=== PATIENT | male | born 1980 | race Hispanic/Latino ===

== ENCOUNTER 2018-05-11 10:05 | Inpatient (IN) | payer OTHER ==
[~2018-05-11] VITALS: Ht 167.6 cm; Wt 67.2 kg
[2018-05-11] MEDS ORDERED: SODIUM CHLORIDE 0.9% 1000ML 1,000 ML IV SCH (11:00)
[2018-05-11 11:06] LABS: BASOPHILS # (AUTO) 0.1 (0.0-0.1); BASOPHILS % 0.5 % (0.0-1.0); EOSINOPHILS % 0.3 % (0.0-6.0); HEMATOCRIT 46.4 % (38.2-49.6); HEMOGLOBIN 15.5 g/dL (14.0-18.0); LYMPHOCYTES # (AUTO) 2.4 (1.0-3.2); MEAN CORPUSCULAR HEMOGLOBIN 27.7 pg (28-32); MEAN CORPUSCULAR HGB CONC 33.4 g/dL (31-35); NEUTROPHILS # (AUTO) 8.5 (2.1-6.9); NEUTROPHILS % 70.6 % (38.7-80.0); PLATELET COUNT 257 x10e3/uL (140-360); RED BLOOD COUNT 5.59 x10e6/uL (4.3-5.7); RED CELL DISTRIBUTION WIDTH 13.2 % (11.7-14.4)
[2018-05-11 11:15] LABS: INR 1.05; PROTHROMBIN TIME 12.9 seconds (11.9-14.5)
[2018-05-11 11:16] LABS: PARTIAL THROMBOPLASTIN TIME 33.2 seconds (23.8-35.5)
[2018-05-11 11:22] LABS: BILIRUBIN,URINE NEGATIVE (NEGATIVE); CLARITY,URINE CLEAR (CLEAR); COLOR,URINE YELLOW (YELLOW); KETONES,URINE NEGATIVE (NEGATIVE); LEUKOCYTE ESTERASE ,URINE NEGATIVE (NEGATIVE); NITRITE,URINE NEGATIVE (NEGATIVE); PROTEIN,URINE DIPSTICK NEGATIVE (NEGATIVE); URINE UROBILINOGEN 0.2 mg/dL (0.2 - 1)
[2018-05-11 11:26] LABS: ALANINE AMINOTRANSFERASE 52 IU/L (0-55); ALBUMIN/GLOBULIN RATIO 1.1 (0.8-2.0); ALKALINE PHOSPHATASE 110 IU/L (40-150); AMYLASE 78 U/L (25-125); ANION GAP 16.5 mmol/L (8-16); BLOOD UREA NITROGEN 11 mg/dL (7-26); BUN/CREATININE RATIO 12 (6-25); CALCIUM 9.3 mg/dL (8.4-10.2); CARBON DIOXIDE 22 mmol/L (22-29); CHLORIDE 104 mmol/L (98-107); CREATINE KINASE 115 IU/L (30-200); CREATININE, SERUM 0.92 mg/dL (0.72-1.25); EST GLOMERULAR FILTRATION RATE > 60 ML/MIN (60-); GLUCOSE 106 mg/dL (74-118); LIPASE 31 U/L (8-78); POTASSIUM 3.5 mmol/L (3.5-5.1); SODIUM 139 mmol/L (136-145)
[2018-05-11 11:39] LABS: EPITHELIAL CELLS,URINE RARE /LPF; RBC,URINE 0-5 /HPF (0-5)
[2018-05-11] MEDS ORDERED: DONNATAL/LIDOCAINE/MAALOX 30 ML SUSP PO SCH (12:30)
--- NOTE | 2018-05-11 12:44 | Diagnostic Imaging Report ---
Examination: Single AP view of the chest. COMPARISON: None. INDICATION: Diarrhea for 2 months, stomach pain, epigastric pain IMPRESSION: 1. Lines and Tubes: None 2. Lungs are grossly clear. No consolidation or effusion. 3. Cardiomediastinal silhouette is normal. Pulmonary vasculature is normal. 4. No acute bony abnormalities. Signed by: Dr. Akhil Ames M.D. on 05/11/2018 12:41 PM
[2018-05-11] MEDS ORDERED: MORPHINE SULFATE INJ 4 MG/ML INJ IV STA (15:11)
[2018-05-11] MEDS ORDERED: KETOROLAC TROMETHAMINE 30 MG/ML VIAL IV STA (15:36)
[2018-05-11] MEDS ORDERED: LOSARTAN POTASS25 MG PO (17:13)
--- NOTE | 2018-05-11 17:19 | Diagnostic Imaging Report ---
EXAM: CT Abdomen and Pelvis WITH contrast INDICATION: \S\diffuse abdominal pain with diarrhea \[id number] \S\1558 \S\Y COMPARISON: None. TECHNIQUE: Abdomen and pelvis were scanned utilizing a multidetector helical scanner from the lung base to the pubic symphysis after administration of IV contrast. Coronal and sagittal reformations were obtained. Routine protocol was performed. Scan was performed when during portal venous phase. IV CONTRAST: 100 mL of Isovue 370 ORAL CONTRAST: Water COMPLICATIONS: None RADIATION DOSE: Total DLP: 267.1 mGy*cm Estimated effective dose: (DLP x 0.015 x size factor) mSv CTDIvol has been reviewed. It is below the limits set by the Radiation Protocol Committee (RPC). FINDINGS: LINES and TUBES: None. LOWER THORAX: Unremarkable HEPATOBILIARY: No focal hepatic lesions. No biliary ductal dilation. GALLBLADDER: No radio-opaque stones or sludge. No wall thickening. SPLEEN: No splenomegaly. PANCREAS: No focal masses or ductal dilatation. ADRENALS: No adrenal nodules KIDNEYS/URETERS: Kidneys enhance symmetrically. No hydronephrosis. Right renal 1.3 cm hypodensity in the midpole measures greater than fluid density (29 HU). No stones. GI TRACT: Circumferential wall thickening and pericolonic stranding centered around a focal outpouching of the transverse colonic wall (series 2 image 29). A tiny punctate hyperattenuating 0.5 cm structure is noted along the anterior aspect of this outpouching measuring 311 HU. PELVIC ORGANS/BLADDER: Unremarkable. LYMPH NODES: No lymphadenopathy. VESSELS: Unremarkable. PERITONEUM / RETROPERITONEUM: No free air or fluid. BONES: Unremarkable. SOFT TISSUES: Unremarkable. IMPRESSION: Focal outpouching of the anterior transverse colonic wall contains a punctate hyperattenuating structure with surrounding inflammatory changes. Findings raise the question of a foreign body with chronic contained perforation. No evidence of makayla perforation with free air. Findings discussed with Dr. Sánchez on 05/11/2018 at 16:50 hrs. Signed by: DR. Terrance Mckeon MD on 05/11/2018 5:15 PM
[2018-05-11] MEDS ORDERED: MORPHINE SULFATE 2 MG/ML SYR IV PRN (18:00)
[2018-05-11] MEDS ORDERED: PIPER-TAZ 3.375 GM 50 ML IV SCH (18:30)
[2018-05-11] MEDS ORDERED: DIPHENHYDRAMINE HCL INJ 50 MG/ML VIAL IV ONE (19:30)
[2018-05-11] MEDS: METRONIDAZOLE 500MG/NS 100ML 100 ML IV SCH (19:33)
[2018-05-11] MEDS: SODIUM CHLORIDE 0.9% 1000ML 1,000 ML IV SCH (19:33)
[2018-05-11 20:55] VITALS: BP 118/82
[2018-05-11 21:35] VITALS: BP 118/82
[2018-05-11] MEDS ORDERED: METRONIDAZOLE 500MG/NS 100ML 100 ML IV SCH (22:00)
[2018-05-12] VITALS (8 sets, daily range): BP systolic 102–122; BP diastolic 55–76
[2018-05-12] MEDS: MORPHINE SULFATE INJ 4 MG/ML INJ IV PRN (02:13)
[2018-05-12] MEDS: ONDANSETRON HCL INJ 2 MG/ML VIAL IV PRN (02:13)
[2018-05-12] MEDS ORDERED: IOPAMIDOL 370 MG/ML 200 ML INFUS..BTL INJ ONE (03:14)
[2018-05-12] MEDS ORDERED: SODIUM CHLORIDE 0.9% 50ML 50 ML ONE (03:14)
--- NOTE | 2018-05-12 04:25 | History and Physical ---
DATE OF ENCOUNTER: May 11, 2018 PRIMARY PHYSICIAN: [facility]. HOSPITAL PHYSICIAN: Dr. Miguel Tyler HISTORY: Mr. Taylor is a pleasant 38-year-old gentleman with abdominal pain. Patient has been having diarrhea for 3 months. A 10-lb weight loss over 2 months. He claims his eating habits are unchanged and he is not taking in any chemical diets. Patient began to feel some increasing midepigastric abdominal pain. First time he ever had this. He had appendectomy at age 8, but other than that has been healthy. He came to emergency room. White count 4. Creatinine 0.9. LFTs mostly unremarkable with albumin 4.0. C. diff assay was negative. Abdominal CT showed anterior transverse colonic outpouching, and inflammatory appearance. No free air. Consistent with perforated diverticulitis with containment. No free intraperitoneal air noted. He was admitted. PAST MEDICAL HISTORY: Hypertension, PTSD, back pain, and more recently this subacute chronic diarrhea. MEDICATIONS: Medication list reviewed per electronic record. ALLERGIES: PIPERACILLIN AND TAZOBACTAM. SOCIAL HISTORY: No smoking, no drinking, no drugs. He was in the [employer] for 15 years, is 100% disconnected. Patient recently operates multiple businesses now. FAMILY HISTORY: Noncontributory. REVIEW OF SYSTEMS GENERAL: No weight changes that were done intentionally. HEENT: No ulcers in mouth. ENDOCRINE: No known thyroid disease. CARDIAC: No heart attacks. LUNGS: No asthma. GI: No blood in stool. : No blood in urine. NEUROLOGIC: No seizures. DERMATOLOGIC: No rashes. PSYCHIATRIC: No depression. LABS: 3.5 potassium, 0.9 creatinine, 11 BUN, 12 white count, 16 hematocrit, 257,000 platelets. IMPRESSIONS AND PLAN 1. Acute diverticulitis. 2. Chronic contained perforation, transverse colonic. 3. Diarrhea for 2 months. 4. Weight loss, secondary. 5. Posttraumatic stress disorder. 6. Hypertension. 7. Back pain. Continue antibiotics. Patient will be reassessed for discharge potential tomorrow. Check HIV testing, check thyroid testing. Continue antibiotics for this potentially severe infection. Job#: [id number] CQ
[2018-05-12] MEDS: SODIUM CHLORIDE 0.9% 1000ML 1,000 ML IV SCH ×3 (04:54→18:00)
[2018-05-12] MEDS: CIPROFLOXACIN 400 MG/D5W 200ML 200 ML IV SCH ×2 (05:13→14:10)
[2018-05-12 05:30] LABS: BASOPHILS % 0.4 % (0.0-1.0); EOSINOPHILS # (AUTO) 0.1 (0.0-0.4); EOSINOPHILS % 0.6 % (0.0-6.0); HEMATOCRIT 40.2 % (38.2-49.6); HEMOGLOBIN 13.3 g/dL (14.0-18.0); LYMPHOCYTES # (AUTO) 2.3 (1.0-3.2); LYMPHOCYTES % 21.5 % (18.0-39.1); MEAN CORPUSCULAR HEMOGLOBIN 27.8 pg (28-32); MEAN CORPUSCULAR HGB CONC 33.1 g/dL (31-35); MEAN CORPUSCULAR VOLUME 84.1 fL (81-99); MONOCYTES # (AUTO) 0.8 (0.2-0.8); MONOCYTES % 7.8 % (4.4-11.3); NEUTROPHILS # (AUTO) 7.5 (2.1-6.9); NEUTROPHILS % 69.3 % (38.7-80.0); PLATELET COUNT 213 x10e3/uL (140-360); RED BLOOD COUNT 4.78 x10e6/uL (4.3-5.7); RED CELL DISTRIBUTION WIDTH 13.2 % (11.7-14.4)
[2018-05-12 05:50] LABS: ALANINE AMINOTRANSFERASE 40 IU/L (0-55); ALBUMIN 3.2 g/dL (3.5-5.0); ALBUMIN/GLOBULIN RATIO 1.1 (0.8-2.0); ALKALINE PHOSPHATASE 86 IU/L (40-150); ANION GAP 15.6 mmol/L (8-16); BLOOD UREA NITROGEN 9 mg/dL (7-26); BUN/CREATININE RATIO 11 (6-25); CALCIUM 8.5 mg/dL (8.4-10.2); CARBON DIOXIDE 21 mmol/L (22-29); CHLORIDE 108 mmol/L (98-107); EST GLOMERULAR FILTRATION RATE > 60 ML/MIN (60-); GLUCOSE 82 mg/dL (74-118); POTASSIUM 3.6 mmol/L (3.5-5.1); SODIUM 141 mmol/L (136-145)
[2018-05-12 06:19] LABS: HIV 1&2 AB SCREEN NON-REACTIVE (NONREACTIVE)
[2018-05-12] MEDS: METRONIDAZOLE 500MG/NS 100ML 100 ML IV SCH ×2 (06:19→21:21)
[2018-05-12] MEDS: MULTIVITAMINS/MINERALS TAB PO SCH (09:00)
[2018-05-12] MEDS: FAMOTIDINE 20 MG/2 ML VIAL IV SCH (17:45)
--- NOTE | 2018-05-12 21:11 | Consultation ---
DATE OF CONSULTATION: May 12, 2018 CHIEF COMPLAINT: Abdominal pain. HISTORY OF PRESENT ILLNESS: The patient is a 38-year-old male with 2-month history of progressive diarrhea and anorexia. The patient stated in the last several days the pain has worsened with severity reaching at peak just prior to arrival to the emergency room yesterday. The patient denies fever or chills, but admits to nausea with no vomiting. PAST MEDICAL HISTORY: Significant for hypertension, PTSD, chronic back pain, and chronic diarrhea. SURGICAL HISTORY: Positive for appendectomy. SOCIAL HABITS: No history of smoking or alcohol abuse. ALLERGIES: HE IS ALLERGIC TO PENICILLIN. REVIEW OF SYSTEMS: Unremarkable for any chest pain. No shortness of breath. PHYSICAL EXAMINATION: VITAL SIGNS: Stable. He is afebrile. GENERAL: The patient is awake, alert, in mild to moderate discomfort. HEENT: Sclerae are nonicteric. NECK: Supple. LUNGS: Clear. HEART: Regular rate and rhythm. ABDOMEN: Soft with some guarding tenderness in the epigastrium and right upper quadrant without rebound tenderness. EXTREMITIES: Without cyanosis or edema. LABORATORY DATA: White cell count of 11, hemoglobin of 13. Creatinine of 0.8. Lactic acid 7. CT of the abdomen showed evidence of circumferential wall thickening and colonic stranding in the transverse colonic wall. ASSESSMENT: Perforated transverse colonic diverticulitis. PLAN: IV antibiotics. Will follow patient with you. Thank you. Job#: [id number]
[2018-05-13] VITALS (8 sets, daily range): BP systolic 106–141; BP diastolic 65–87
[2018-05-13] MEDS: SODIUM CHLORIDE 0.9% 1000ML 1,000 ML IV SCH ×4 (00:09→19:30)
--- NOTE | 2018-05-13 02:18 | Consultation ---
DATE OF CONSULTATION: GI CONSULTATION REFERRING PHYSICIAN: Dr. Tyler REASON FOR CONSULTATION: Colitis, diverticulitis. HISTORY OF PRESENT ILLNESS: Mr. Taylor is a pleasant 38-year-old gentleman with known history of hypertension, PTSD, back problems, who comes into the hospital with a 3-month history of diarrhea. However, over the last 3 days, he developed increasing abdominal discomfort in the epigastric region, and hence he came in. He reports a 10-pound weight loss. In the ER, he had a CAT scan of the abdomen which revealed evidence of diverticulitis of the transverse colon with possible contained perforation. No free air. No masses. His stool for C. diff was negative. His white count was normal. Creatinine was normal. Hemoglobin was normal. He denies a history of any previous antibiotic use. His pain has improved since he has been n.p.o. PAST MEDICAL HISTORY: As above. Hypertension, PTSD, back problems, diarrhea for 3 months. MEDICATIONS: Per NOV. ALLERGIES: PIPERACILLIN-TAZOBACTAM. SOCIAL HISTORY: Does not smoke, does not drink. Was in the [employer] for 15 years. PHYSICAL EXAMINATION: VITAL SIGNS: Stable, afebrile. GENERAL: Patient is alert and oriented x3, in no acute distress. HEENT: Nonicteric. No nodes. No thyromegaly. LUNGS: Clear to auscultation. CVS: S1 and S2 normal. No murmur. ABDOMEN: Soft. Mild tenderness in the epigastric region. EXTREMITIES: No edema. LABS AND X-RAYS: White count 10.7 today, hemoglobin 13.3, platelets normal. Coags normal. Chemistries, BMP, and liver function tests normal. Urine normal. Serology, stool for C. diff negative. IMPRESSION: 1. Diverticulitis of the transverse colon, presenting with diarrhea for 2 months and increasing abdominal pain with contained perforation. There is no evidence of any Clostridium difficile. However, will recommend stool for culture and sensitivity. Agree with intravenous antibiotics. 2. NPO for another 24 hours and clear liquids in a.m. Patient will need elective colonoscopy in 4 to 6 weeks to rule out underlying neoplasm. Further recommendations pending hospital course. The above plan of care was discussed with the patient and he is agreeable. Job#: [id number]
[2018-05-13] MEDS: CIPROFLOXACIN 400 MG/D5W 200ML 200 ML IV SCH (03:42)
[2018-05-13] MEDS: METRONIDAZOLE 500MG/NS 100ML 100 ML IV SCH ×3 (05:16→21:43)
[2018-05-13] MEDS: FAMOTIDINE 20 MG/2 ML VIAL IV SCH (09:31)
[2018-05-13] MEDS: MULTIVITAMINS/MINERALS TAB PO SCH (09:31)
[2018-05-13] MEDS: LEVOFLOXACIN 750MG/D5W 150ML 150 ML IV SCH (14:04)
[2018-05-13] MEDS ORDERED: LOPERAMIDE HCL 2 MG CAP PO PRN (17:45)
[2018-05-13] MEDS ORDERED: LOPERAMIDE HCL 2 MG CAP PO NR (17:45)
[2018-05-13] MEDS ORDERED: ZOLPIDEM TARTRATE 5 MG TAB PO PRN (21:45)
[2018-05-14] VITALS (8 sets, daily range): BP systolic 112–150; BP diastolic 74–93
[2018-05-14] MEDS: METRONIDAZOLE 500MG/NS 100ML 100 ML IV SCH ×3 (05:24→21:28)
[2018-05-14] MEDS: MULTIVITAMINS/MINERALS TAB PO SCH (08:27)
[2018-05-14] MEDS: LEVOFLOXACIN 750MG/D5W 150ML 150 ML IV SCH (13:15)
[2018-05-14] MEDS: ONDANSETRON HCL INJ 2 MG/ML VIAL IV PRN (18:25)
[2018-05-14] MEDS: MORPHINE SULFATE INJ 4 MG/ML INJ IV PRN (18:25)
[2018-05-14] MEDS: ACETAMINOPHEN 325 MG TAB PO PRN (23:45)
[2018-05-15] VITALS (7 sets, daily range): BP systolic 111–150; BP diastolic 74–91
[2018-05-15] MEDS ORDERED: LOSARTAN POTASSIUM 25 MG TAB PO ONE (00:30)
[2018-05-15] MEDS: METRONIDAZOLE 500MG/NS 100ML 100 ML IV SCH ×3 (06:03→23:36)
[2018-05-15] MEDS: LOSARTAN POTASSIUM 25 MG TAB PO SCH (09:00)
[2018-05-15] MEDS: MULTIVITAMINS/MINERALS TAB PO SCH (09:00)
[2018-05-15] MEDS: PANTOPRAZOLE SOD 40 MG TABEC PO SCH ×2 (09:00→17:49)
[2018-05-15] MEDS ORDERED: SODIUM CHLORIDE 0.9% 50ML 50 ML ONE ×2 (10:43→13:53)
[2018-05-15] MEDS ORDERED: IOPAMIDOL 370 MG/ML 200 ML INFUS..BTL INJ ONE ×2 (10:44→13:53)
[2018-05-15] MEDS ORDERED: DIATRIZOATE MEGL/DIATRIZOA SOD 30 ML BTL PO ONE (10:44)
--- NOTE | 2018-05-15 13:31 | Diagnostic Imaging Report ---
PROCEDURE: CT ABDOMEN AND PELVIS WITH CONTRAST TECHNIQUE: The abdomen and pelvis were scanned utilizing a multidetector helical scanner from the diaphragm to the lesser trochanter after the IV administration of 100 cc of Isovue 370 and the oral administration of 900 cc of Gastrografin. Coronal and sagittal multiplanar reformations were obtained. COMPARISON: CT Abdomen/Pelvis 05/11/18. INDICATIONS: DIAHHREA, PERFORRATION FINDINGS: LOWER THORAX: Normal. HEPATOBILIARY: No focal hepatic lesions. No biliary ductal dilatation. SPLEEN: No splenomegaly. PANCREAS: No focal masses or ductal dilatation. ADRENALS: No adrenal nodules. KIDNEYS/URETERS: No hydronephrosis, stones, or solid mass lesions. Hypodensity in the right kidney measuring 1.3 cm is again noted. PELVIC ORGANS/BLADDER: Unremarkable. PERITONEUM / RETROPERITONEUM: No free air or fluid. LYMPH NODES: No lymphadenopathy. VESSELS: Unremarkable. GI TRACT: Again noted is circumferential wall thickening with surrounding inflammatory changes centered around a focal outpouching of the transverse colonic wall. Previously noted hyperdense focus within this location is no longer present, possibly reflect transit of a foreign body. The degree of surrounding inflammatory change has decreased from the prior CT. There is mild diffuse colonic wall thickening. BONES AND SOFT TISSUES: No acute findings. IMPRESSION: Decreasing inflammatory changes surrounding a potential focus of contained perforation in the anterior transverse colonic wall. Previously noted hyperdense focus at this location is no longer present, and may reflect transit of a foreign body. No free air. Mild diffuse colonic wall thickening, which could reflect colitis, potentially infectious or inflammatory in a patient with history of diarrhea. Dictated by: DANNA PRESTON M.D. on 05/15/2018 at 13:37 Electronically approved by: DANNA PRESTON M.D. on 05/15/2018 at 13:37
[2018-05-15] MEDS: LEVOFLOXACIN 750MG/D5W 150ML 150 ML IV SCH (13:45)
[2018-05-15] MEDS: MESALAMINE 400 MG CAP PO SCH ×2 (15:00→20:58)
[2018-05-15] MEDS ORDERED: CITRATE OF MAGNESIA 300ML BOTTLE PO ONE (19:45)
[2018-05-15] MEDS ORDERED: CITRATE OF MAGNESIA 300ML BOTTLE PO SCH (21:00)
[2018-05-16] VITALS (7 sets, daily range): BP systolic 116–137; BP diastolic 72–90
[2018-05-16] MEDS: METRONIDAZOLE 500MG/NS 100ML 100 ML IV SCH ×3 (05:48→22:00)
[2018-05-16] MEDS: MULTIVITAMINS/MINERALS TAB PO SCH (11:10)
[2018-05-16] MEDS: PANTOPRAZOLE SOD 40 MG TABEC PO SCH ×2 (11:10→17:29)
[2018-05-16] MEDS: MESALAMINE 400 MG CAP PO SCH ×3 (11:11→21:00)
[2018-05-16] MEDS: LOSARTAN POTASSIUM 25 MG TAB PO SCH (11:11)
[2018-05-16] MEDS ORDERED: PROPOFOL IV EMULSION 10 MG/ML 50 ML VIAL ONE (13:06)
[2018-05-16] MEDS ORDERED: LIDOCAINE HCL 2% LOCAL INJ 5 ML SDV VIAL INJ ONE (13:06)
[2018-05-16] MEDS: LEVOFLOXACIN 750MG/D5W 150ML 150 ML IV SCH (13:56)
[2018-05-16] MEDS ORDERED: FENTANYL CITRATE/PF 100MCG/2 ML INJ ONE (14:08)
[2018-05-16] MEDS ORDERED: MIDAZOLAM HCL 2 MG/2 ML VIAL ONE (14:08)
[2018-05-16] MEDS: ACETAMINOPHEN 325 MG TAB PO PRN (15:53)
[2018-05-16] MEDS: MORPHINE SULFATE INJ 4 MG/ML INJ IV PRN (20:52)
[2018-05-16] MEDS: ONDANSETRON HCL INJ 2 MG/ML VIAL IV PRN (20:52)
[2018-05-17] VITALS (7 sets, daily range): BP systolic 104–128; BP diastolic 65–87
[2018-05-17] MEDS: METRONIDAZOLE 500MG/NS 100ML 100 ML IV SCH ×3 (05:40→21:38)
[2018-05-17] MEDS: MULTIVITAMINS/MINERALS TAB PO SCH (08:32)
[2018-05-17] MEDS: MESALAMINE 400 MG CAP PO SCH ×3 (08:32→21:38)
[2018-05-17] MEDS: LOSARTAN POTASSIUM 25 MG TAB PO SCH (08:32)
[2018-05-17] MEDS: PANTOPRAZOLE SOD 40 MG TABEC PO SCH (08:32)
[2018-05-17] MEDS: LEVOFLOXACIN 750MG/D5W 150ML 150 ML IV SCH (15:47)
[2018-05-18] VITALS: BP 109/75
[2018-05-18 04:00] VITALS: BP 128/75
[2018-05-18] MEDS: METRONIDAZOLE 500MG/NS 100ML 100 ML IV SCH (06:00)
[2018-05-18 08:49] VITALS: BP 116/79
[2018-05-18] MEDS: MULTIVITAMINS/MINERALS TAB PO SCH (09:00)
[2018-05-18] MEDS: LOSARTAN POTASSIUM 25 MG TAB PO SCH (09:00)
[2018-05-18 12:46] VITALS: BP 111/76
[2018-05-18] MEDS ORDERED: LEVAQUIN500 MG PO (15:16)
[2018-05-18] MEDS ORDERED: FLAGYL250 MG PO (15:17)
--- NOTE | 2018-05-18 17:00 | Discharge Summary ---
PRIMARY CARE DOCTOR: With the IN system. FINAL DIAGNOSIS: Perforated transverse colonic diverticulitis with sepsis present on admission. PERFORMING ARTIST: Dr. Gaytan, GI. PROCEDURES/STUDIES PERFORMED 1. CT of the abdomen and pelvis. 2. Flexible sigmoidoscopy. HISTORY: Per H and P. HOSPITAL COURSE: The patient was admitted. Initial CT showed a possible chronic contained perforation. However, the patient responded pretty slowly. Also, with the diarrhea, there was suspicion for inflammatory bowel disease. Repeat CT was done, which showed improvement. Subsequently, a flexible sigmoidoscopy was done confirming diverticulosis. However, transverse colon was not visualized. Biopsy results times 2 were not diagnostic. Empirically, the patient was put on mesalamine. However, I have discussed with Dr. Gaytan, and we will hold off on mesalamine. The patient will go home on oral Levaquin and Flagyl for 10 more days. He received IV Levaquin and Flagyl while here. The patient will follow up with Dr. Gaytan. Down the line, he will need a full colonoscopy for a definitive evaluation. It took 32 minutes total to discharge this patient. The patient was seen and examined today. CONDITION ON DISCHARGE: Stable. DISCHARGE MEDICATIONS: Please see medication reconciliation form. JAVIER PALMER M.D. Job#: [id number]
== END 2018-05-18 15:33 | disposition home or self-care (01) | DRG 871 ==
LOC: ER 10:05 → ERHOLD 18:30 → IMCU 20:20 → OBSVTOIN 05-13 13:00 → MED/SURG3 05-13 17:46
PROVIDERS: ADMIT Internal Medicine; ATTEND Internal Medicine
PROC: 0DBP8ZX Excision of Rectum, Via Natural or Artificial Opening Endoscopic, Diagnostic (ICD-10-PCS; principal; 2018-05-13)
PROC: 0DBE8ZX Excision of Large Intestine, Via Natural or Artificial Opening Endoscopic, Diagnostic (ICD-10-PCS; 2018-05-13)
DX: A41.9 Sepsis, unspecified organism (principal); K57.21 Diverticulitis of large intestine with perforation and abscess with bleeding; F43.10 Post-traumatic stress disorder, unspecified; I10 Essential (primary) hypertension; K62.1 Rectal polyp; K52.9 Noninfective gastroenteritis and colitis, unspecified; K64.8 Other hemorrhoids
CPT/HCPCS: 36415; 71045; 74177; 80053; 81001; 82150; 82550; 82553; 83605; 83690; 84443; 84484; 85025; 85610; 85730; 87040; 87045; 87177; 87328; 87390; 87493; 88305; 93005; 99284; G0378; G0433; G0435; J1200; J1885; J2001; J2250; J2270; J2405; J2543; J7030; Q9967

== ENCOUNTER 2020-07-10 17:49 | Emergency (ER) | payer SELFPAY ==
[~2020-07-10] VITALS: Ht 167.6 cm; Wt 67.1 kg
[~2020-07-10 17:49] MED LIST: FLAGYL250 MG PO; LEVAQUIN500 MG PO; LOSARTAN POTASS25 MG PO
--- NOTE | 2020-07-10 17:58 | NUR ---
BILATERAL BLOOD PRESSURES: LEFT ARM: 177/117 RIGHT ARM: 179/112
--- NOTE | 2020-07-10 18:12 | Emergency Department Note ---
History of Present Illnes History of Present Illness Chief Complaint: Hypertension History of Present Illness This is a 40 year old male IN FROM HOME WITH COMPLAINTS OF HIGH BLOOD PRESSURE OVER THE LAST WEEK; STATES HAS BEEN TAKING HIS BLOOD PRESSURE MEDICATION MOST OF THE TIME BUT TOOK THE LAST ONE TODAY; PATIENT DENIES COUGH, CHEST PAIN, SHORTNESS OF BREATH . Historian: Patient Arrival Mode: Car [employer] Equipment Operator Required: No Onset (how long ago): day(s) (7) Location: NONE Quality: ELEVATED BLOOD PRESSURE Radiation: Reports non-radiation Severity: moderate Onset quality: gradual Duration (how long): day(s) (7) Timing of current episode: intermittent Progression: waxing and waning Chronicity: recurrent Context: Denies recent illness, Denies recent surgery, Denies recent travel Relieving factors: none Exacerbating factors: none Associated symptoms: Reports denies other symptoms Past Medical/Family History Physician Review I have reviewed the patient's past medical and family history. Any updates have been documented here. Past Medical History Recent Fever: No Clinical Suspicion of Infectio: No New/Unexplained Change in Ment: No Past Medical History: Hypertension Other Medical History: PTSD Past Surgical History: Appendectomy Other Surgery: EYES SX, APPY Social History Smoking Cessation: Current some day smoker Alcohol Use: Occasional Physically hurt or threatened: No Family History Family history of heart diseas: No Other Last Tetanus: UTD Review of Systems Review of Systems Constitutional: Reports no symptoms EENTM: Reports no symptoms Cardiovascular: Reports no symptoms Respiratory: Reports no symptoms Gastrointestinal: Reports no symptoms Genitourinary: Reports no symptoms Musculoskeletal: Reports other (MILD RIGHT BACK PAIN FOR A COUPLE OF DAYS) Integumentary: Reports no symptoms Neurological: Reports no symptoms Psychological: Reports no symptoms Endocrine: Reports no symptoms Hematological/Lymphatic: Reports no symptoms Physical Exam Related Data Allergies: Coded Allergies: piperacillin (Verified Allergy, Intermediate, hives, 07/10/20) tazobactam (Verified Allergy, Intermediate, hives, 07/10/20) Triage Vital Signs Vital Signs Date Time Temp Pulse Resp B/P (MAP) Pulse Ox O2 Delivery O2 Flow Rate FiO2 07/10/20 17:54 98.3 103 18 179/112 100 Room Air Vital signs reviewed: Yes Physical Exam CONSTITUTIONAL Constitutional: Present well-developed, Present well-nourished HENT HENT: Present normocephalic, Present atraumatic, Present oropharynx clear/moist, Present nose normal HENT L/R: Present left ext ear normal, Present right ext ear normal EYES Eyes: Reports PERRL, Reports conjunctivae normal NECK Neck: Present ROM normal PULMONARY Pulmonary: Present effort normal, Present breath sounds normal CARDIOVASCULAR Cardiovascular: Present regular rhythm, Present heart sounds normal, Present capillary refill normal, Present tachycardia (102) GASTROINTESTINAL Abdominal: Present soft, Present nontender, Present bowel sounds normal GENITOURINARY Genitourinary: Present exam deferred SKIN Skin: Present warm, Present dry MUSCULOSKELETAL Musculoskeletal: Present ROM normal NEUROLOGICAL Neurological: Present alert, Present oriented x 3, Present no gross motor or sensory deficits PSYCHOLOGICAL Psychological: Present mood/affect normal, Present judgement normal Assessment & Plan Medical Decision Making MDM PT WITH H/O HTN WITH ELEVATED BLOOD PRESSURE, OUT OF HIS [place] TOOK LAST ONE TODAY, ALSO HAS HAD MILD RIGHT LOW/MID BACK PAIN FOR A FEW DAYS UA ORDERED TO EVAL FOR HEMATURIA CLONIDINE 0.1 MG PO ORDERED PT POSITIVE FOR COCAINE ON UDS, HE NOW STATES HE USED COCAINE LAST NIGHT Assessment & Plan Final Impression: (1) Hypertensive urgency (2) Cocaine abuse Depart Disposition: HOME, SELF-CARE Last Vital Signs Date Time Temp Pulse Resp B/P (MAP) Pulse Ox O2 Delivery O2 Flow Rate FiO2 07/10/20 17:54 98.3 103 18 179/112 100 Room Air Home Meds Reported Medications Metronidazole (FLAGYL) 250 Mg Tablet, 500 MG PO TID 05/18/18 Levofloxacin (LEVAQUIN) 500 Mg Tablet, 500 MG PO DAILY for 10 Days, TAB 05/18/18 Losartan Potassium (LOSARTAN POTASSIUM) 25 Mg Tablet, 25 MG PO DAILY 05/11/18 GODWIN GOLDBERG MD Jul 10, 2020 18:11
[2020-07-10] MEDS ORDERED: CLONIDINE HCL 0.1 MG TAB PO ONE (18:15)
[2020-07-10] MEDS ORDERED: CLONIDINE HCL 0.1 MG TAB ONE (18:17)
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
--- OUTSIDE RECORDS SUMMARY | 2020-07-10 18:19 | XMS REPORT | Continuity of Care Document ---
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 11:26:00* Test Item Value Reference Range Interpretation Comments Amylase Level (test code = 1798-8) 78 25-125 [facility]2018-08-10 11:26:00* Test Item Value Reference Range Interpretation Comments Lipase (test code = 3040-3) 31 8-78 [facility] Dwzga1481-47-75 11:22:00* Test Item Value Reference Range Interpretation Comments Urine Color (test code = 5778-6) YELLOW YELLOW [facility] Ccwgrfs0019-74-02 11:22:00* Test Item Value Reference Range Interpretation Comments Urine Clarity (test code = 26243-2) CLEAR CLEAR [facility] Specific Pefjywn9910-74-51 11:22:00 * Test Item Value Reference Range Interpretation Comments Urine Specific Alexander (test code = 5811-5) 1.005 1.010-1.02 5 L [facility] [id number] 11:22:00* Test Item Value Reference Range Interpretation Comments Urine pH (test code = 34106-9) 6 5-7 [facility] Leukocyte Csuqxdkx5291-81-02 11:22:00* Test Item Value Reference Range Interpretation Comments Urine Leukocyte Esterase (test code = 5799-2) NEGATIVE NEGATIVE [facility] Erzmkvv8128-92-96 11:22:00* Test Item Value Reference Range Interpretation Comments Urine Nitrite (test code = 49537-0) NEGATIVE NEGATIVE [facility] Cpeyruw8400-50-46 11:22:00* Test Item Value Reference Range Interpretation Comments Urine Protein (test code = 5804-0) NEGATIVE NEGATIVE [facility] Glucose (UA)2018-05-11 11:22:00* Test Item Value Reference Range Interpretation Comments Urine Glucose (UA) (test code = 2349-9) NEGATIVE NEGATIVE [facility] [id number] 11:22:00* Test Item Value Reference Range Interpretation Comments Urine Ketones (test code = 11579-7) NEGATIVE NEGATIVE [facility] Wjywldkoxzll9220-67-38 11:22:00* Test Item Value Reference Range Interpretation Comments Urine Urobilinogen (test code = 24106-6) 0.2 0.2-1 [facility] Nchrvwsvo7638-83-06 11:22:00* Test Item Value Reference Range Interpretation Comments Urine Bilirubin (test code = 1978-6) NEGATIVE NEGATIVE [facility] Fnbzl8135-90-54 11:22:00* Test Item Value Reference Range Interpretation Comments Urine Blood (test code = 08228-1) TRACE NEGATIVE H [facility] HospitalL[facility] Acid Ihsyx6013-01-49 11:20:00* Test Item Value Reference Range Interpretation Comments Lactic Acid Level (test code = Lactic Acid Level) 7.0 4.5- 19.8 [facility] Partial Thromboplast Time 2018-05-11 11:16:00* Test Item Value Reference Range Interpretation Comments Activated Partial Thromboplast Time (test code = 89042-4) 33.2 23.8-35.5 [facility]th[facility]bin [id number] 11:15:00* Test Item Value Reference Range Interpretation Comments Prothrombin Time (test code = 5902-2) 12.9 11.9-14.5 [facility] HospitalProthromb Time International Ratio 2018-05-11 11:15:00* Test Item Value Reference Range Interpretation Comments Prothromb Time International Ratio (test code = 6301-6) 1.05 Oral Anticoagulant Therapy INR Values:1. Low Intensity Therapy 1.5 - 2.02 . Moderate Intensity Therapy 2.0 - 3.03. High Intensity Therapy(1) 2.5 - 3. 54. High Intensity Therapy(2) 3.0 - 4.05. Panic Value INR > 5.0 [facility]LE[facility] [id number] 16:39:00 Bronch Esequiel. Lavage (09/22/16 10:39 AM)[facility] 2016-[facility]-22 16:39:00Negative (09/22/16 10:39 AM)[facility] [id number] 16:39:00Negative (09/22/16 10:39 AM)[facility] [id number] 16:39:00Negative (09/22/16 10:39 AM)[facility] [id number] 16:39:00Negative (09/22/16 10:39 AM) [facility] [id number] 16:39:00Bronch Esequiel. Lavage (09/22/16 10:39 AM)[facility] LVEVVURWYY5381-88-14 16:39:00Bronch Esequiel. Lavage (09/22/16 10:39 AM)[facility] [id number] 16:39:00Negative (09/22/16 10:39 AM)[facility] 2016-09-22 16:39:00Negative (09/22/16 10:39 AM)[facility] ULZTCFCIUX7412-02-01 16:39:00Negative (09/22/16 10:39 AM)[facility] [id number] 22:10:0027[facility]annCHE[facility] [id number] 22:10:0016.0 [facility] HermannCHEM [id number] 22:10:02064Syshrkcj HermannCHEM PANEL 2016-09-19 22:10:20565Zrichnmr HermannCHEM [id number] 22:10:008.4[facility]annCHE[facility] [id number] 22:10:004.0[facility]annCHE[facility] [id number] 22:10:000.79[facility]annCHE[facility] [id number] 22:10:0014[facility]annCHE[facility] [id number] 22:10:0098[facility]
[2020-07-10 18:28] LABS: AMPHETAMINES SCREEN,URINE NEGATIVE (NEGATIVE); BENZODIAZEPINES SCREEN,URINE NEGATIVE (NEGATIVE); BILIRUBIN,URINE NEGATIVE (NEGATIVE); CLARITY,URINE SL CLOUDY (CLEAR); COLOR,URINE YELLOW (YELLOW); KETONES,URINE NEGATIVE (NEGATIVE); LEUKOCYTE ESTERASE ,URINE NEGATIVE (NEGATIVE); NITRITE,URINE NEGATIVE (NEGATIVE); PHENCYCLIDINE SCREEN,URINE NEGATIVE (NEGATIVE); PROTEIN,URINE DIPSTICK NEGATIVE (NEGATIVE); URINE UROBILINOGEN 0.2 mg/dL (0.2 - 1)
== END 2020-07-10 18:46 | disposition home or self-care (01) ==
LOC: ER 18:17
DX: I16.0 Hypertensive urgency (principal); F14.10 Cocaine abuse, uncomplicated; I10 Essential (primary) hypertension; F43.10 Post-traumatic stress disorder, unspecified; F17.210 Nicotine dependence, cigarettes, uncomplicated
CPT/HCPCS: 80307; 81001; 99283